=== PATIENT | male | born 1950 | race African-American/Black ===

== ENCOUNTER 2018-09-16 04:25 | Emergency (ER) | payer MEDICAID ==
[~2018-09-16] VITALS: Ht 170.2 cm; Wt 74.0 kg
[2018-09-16] MEDS ORDERED: MORPHINE SULFATE 10 MG/ML CPJ IM ONE (06:45)
[2018-09-16] MEDS ORDERED: ACETAMINOPHEN 500MG TABLET PO ONE (08:30)
[2018-09-16 09:10] VITALS: BP 142/91
== END 2018-09-16 09:15 | disposition home or self-care (01) ==
LOC: ER 04:59
DX: S39.012A Strain of muscle, fascia and tendon of lower back, initial encounter (principal); S16.1XXA Strain of muscle, fascia and tendon at neck level, initial encounter; I10 Essential (primary) hypertension; J45.909 Unspecified asthma, uncomplicated; Z88.0 Allergy status to penicillin; Z88.6 Allergy status to analgesic agent; Z98.890 Other specified postprocedural states; Z87.19 Personal history of other diseases of the digestive system; W10.8XXA Fall (on) (from) other stairs and steps, initial encounter; Y93.89 Activity, other specified; Y92.018 Other place in single-family (private) house as the place of occurrence of the external cause
CPT/HCPCS: 70450; 72125; 72128; 72131; 96372; 99284; J2270; Z7610

== ENCOUNTER 2018-10-31 03:20 | Emergency (ER) | payer MEDICAID ==
[~2018-10-31] VITALS: Ht 170.2 cm; Wt 75.0 kg
[2018-10-31] MEDS ORDERED: HYDROCODONE/ACETAMINOPHEN 5/325MG TABLET PO STA (04:58)
[2018-10-31 08:12] VITALS: BP 140/78
== END 2018-10-31 08:13 | disposition home or self-care (01) ==
LOC: ER 03:20
DX: M54.5 Low back pain (principal); G89.29 Other chronic pain; M54.30 Sciatica, unspecified side; R73.03 Prediabetes; I10 Essential (primary) hypertension; J45.909 Unspecified asthma, uncomplicated; Z88.0 Allergy status to penicillin; Z88.6 Allergy status to analgesic agent; Z87.19 Personal history of other diseases of the digestive system; Z87.828 Personal history of other (healed) physical injury and trauma
CPT/HCPCS: 99283; Z7610

== ENCOUNTER 2019-06-28 00:36 | Emergency (ER) | payer MEDICAID, OTHER ==
[~2019-06-28] VITALS: Ht 170.2 cm; Wt 75.0 kg
[~2019-06-28 00:36] MED LIST: ALBU6.7H9 INH; AMLO10TA80 PO; HYDR-4001 PO; METO25TA6 PO; OMEP20CA14 PO; TAMS-11 PO
[2019-06-28] MEDS ORDERED: ONDANSETRON HCL 4MG/2ML INJ IV STA (02:35)
[2019-06-28] MEDS ORDERED: SODIUM CHLORIDE 0.9% 1,000 ML IV ONE (02:35)
[2019-06-28] MEDS ORDERED: MORPHINE SULFATE 4 MG/ML CPJ (NOT FOR IM USE) IV STA (02:35)
[2019-06-28] MEDS ORDERED: CLONIDINE 0.2MG TABLET PO ONE (02:45)
[2019-06-28 03:06] LABS: CLARITY URINE CLEAR (CLEAR); COLOR URINE YELLOW (YELLOW); KETONES URINE NEGATIVE (NEGATIVE); LEUKOCYTE ESTERASE URINE NEGATIVE (NEGATIVE); NITRITE URINE NEGATIVE (NEGATIVE); OCCULT BLOOD URINE NEGATIVE (NEGATIVE); PROTEIN URINE 1+ (NEGATIVE); SPECIFIC GRAVITY URINE 1.028 (1.005-1.030)
[2019-06-28 03:08] LABS: BASOPHILS % 1.4 % (0.0-2.0); EOSINOPHILS % 0.5 % (0.0-5.0); HEMATOCRIT. 37.8 % (42.0-52.0); HEMOGLOBIN. 12.8 g/dL (14.0-18.0); LYMPHOCYTES % 35.1 % (20.0-50.0); MEAN CORPUSCULAR HEMOGLOBIN 30.8 pg (28.0-32.0); MEAN CORPUSCULAR VOLUME 90.8 fL (80.0-94.0); MEAN PLATELET VOLUME 7.4 fl (7.4-10.4); MONOCYTES % 6.9 % (2.0-8.0); NEUTROPHILS % 56.1 % (40.0-76.0); PLATELET 275 x1000/uL (130-400); RED BLOOD CELL COUNT 4.16 mill/uL (4.7-6.1); RED CELL DISTRIBUTION WIDTH 13.8 % (11.6-14.6)
[2019-06-28 03:16] LABS: CHLORIDE 111 mEq/L (98-107)
[2019-06-28 04:18] VITALS: BP 121/76
[2019-06-28] MEDS ORDERED: HYDROCODONE/ACETAMINOPHEN 5/325MG TABLET PO ONE (04:30)
== END 2019-06-28 04:53 | disposition home or self-care (01) ==
LOC: ER 00:36
DX: M54.42 Lumbago with sciatica, left side (principal); M54.41 Lumbago with sciatica, right side; I10 Essential (primary) hypertension
CPT/HCPCS: 36415; 72100; 80053; 81003; 85025; 93005; 96374; 96375; 99284; J2270; J2405; J7030; Z7610

== ENCOUNTER 2019-09-13 07:52 | Emergency (ER) | payer OTHER ==
[~2019-09-13] VITALS: Ht 170.2 cm; Wt 79.0 kg
[2019-09-13 08:54] VITALS: BP 151/93
[2019-09-13] MEDS ORDERED: HYDROCODONE/ACETAMINOPHEN 5/325MG TABLET PO ONE (09:00)
== END 2019-09-13 09:47 | disposition home or self-care (01) ==
LOC: ER 07:52
DX: G89.29 Other chronic pain (principal); M54.5 Low back pain; M25.561 Pain in right knee; I10 Essential (primary) hypertension; Z79.891 Long term (current) use of opiate analgesic; Z87.19 Personal history of other diseases of the digestive system
CPT/HCPCS: 99283